=== PATIENT | female | born 1985 | race Caucasian/White ===

== ENCOUNTER 2021-08-27 09:09 | Emergency (ER) | payer BC, OTHER ==
[~2021-08-27 09:09] MED LIST: NAPROSYN500 MG PO; PHENERGAN 25 MG25 M1 PO
[2021-08-27 09:44] LABS: HEMOGLOBIN 13.4 gm/dl (12.3-15.3); RED BLOOD COUNT 4.65 M/UL (4.00-5.10); WHITE BLOOD COUNT 13.3 K/UL (4.5-11.0)
[2021-08-27 09:59] LABS: BUN/CREATININE RATIO 14 (0-10)
== END 2021-08-27 10:51 | disposition home or self-care (01) ==
LOC: ER1 09:09
PROVIDERS: Emergency Medicine
DX: N39.0 Urinary tract infection, site not specified (principal); N18.9 Chronic kidney disease, unspecified; Z90.49 Acquired absence of other specified parts of digestive tract
CPT/HCPCS: 70450; 80048; 81001; 85025; 87086; 96374; 96375; 99284; J1200; J1885; J2765; J7030

== ENCOUNTER 2022-01-06 12:31 | Emergency (ER) | payer BC, OTHER | END 2022-01-06 15:57 | disposition left against medical advice (07) | LOC: ER1 12:31 | DX: G43.919 Migraine, unspecified, intractable, without status migrainosus (principal); I10 Essential (primary) hypertension; Z87.442 Personal history of urinary calculi; Z88.6 Allergy status to analgesic agent; Z88.5 Allergy status to narcotic agent; Z88.1 Allergy status to other antibiotic agents | CPT/HCPCS: 99283; J1200; J2765; J3030; J3475 ==